=== PATIENT | female | born 1985 ===

== ENCOUNTER 2018-10-31 07:43 | Inpatient (IN) | payer OTHER ==
[~2018-10-31] VITALS: Ht 160 cm; Wt 3.2 kg
[2018-10-31] MEDS ORDERED: PRENATAL TABLE1 EACH PO (12:07)
[2018-11-03] MEDS ORDERED: NAPR500T14 PO (09:02)
[2018-11-03] MEDS ORDERED: PRENATAL CAPLE1 EAC1 PO (09:02)
== END 2018-11-03 16:13 | DRG 788 ==
LOC: OB/GYN 07:43 → LDR 07:43 → OB/GYN 23:59
PROVIDERS: ADMIT Obstetrics & Gynecology
PROC: 4A1HXCZ Monitoring of Products of Conception, Cardiac Rate, External Approach (ICD-10-PCS; 2018-10-31)
PROC: 4A033R1 Measurement of Arterial Saturation, Peripheral, Percutaneous Approach (ICD-10-PCS; 2018-10-31)
PROC: 10D00Z1 Extraction of Products of Conception, Low, Open Approach (ICD-10-PCS; principal; 2018-10-31 21:00)
DX: O62.0 Primary inadequate contractions (principal); Z3A.39 39 weeks gestation of pregnancy; Z37.0 Single live birth; Z22.330 Carrier of Group B streptococcus

== ENCOUNTER 2018-11-06 19:06 | Inpatient (IN) | payer OTHER ==
[~2018-11-06] VITALS: Ht 157.5 cm; Wt 84.4 kg
[~2018-11-06 19:06] MED LIST: NAPR500T14 PO; PRENATAL CAPLE1 EAC1 PO; PRENATAL TABLE1 EACH PO
== END 2018-11-21 20:07 | disposition home or self-care (01) | DRG 776 ==
LOC: OB/GYN 19:06
PROVIDERS: ADMIT Obstetrics & Gynecology
PROC: BW21ZZZ Computerized Tomography (CT Scan) of Abdomen and Pelvis (ICD-10-PCS; principal; 2018-11-08)
DX: O86.01 Infection of obstetric surgical wound, superficial incisional site (principal); O90.2 Hematoma of obstetric wound; B96.1 Klebsiella pneumoniae [K. pneumoniae] as the cause of diseases classified elsewhere; F43.25 Adjustment disorder with mixed disturbance of emotions and conduct